=== PATIENT | male | born 1995 | race Caucasian/White ===

== ENCOUNTER 2016-04-29 08:25 | Emergency (ER) | payer OTHER | END 2016-04-29 09:30 | disposition home or self-care (01) | LOC: ED 08:25 | DX: H92.01 Otalgia, right ear (principal) ==

== ENCOUNTER 2016-05-07 08:15 | Emergency (ER) | payer SELFPAY | END 2016-05-07 08:56 | disposition home or self-care (01) | LOC: ED 08:15 | DX: H60.91 Unspecified otitis externa, right ear (principal); H72.91 Unspecified perforation of tympanic membrane, right ear ==